=== PATIENT | female | born 1945 ===

== ENCOUNTER 2019-01-10 14:21 | Outpatient (CLI) | payer MEDICARE | END 2019-01-10 14:22 | disposition home or self-care (01) | LOC: C.MAMMO 14:21 | DX: Z12.31 Encounter for screening mammogram for malignant neoplasm of breast (principal) ==

== ENCOUNTER 2019-01-10 15:11 | Outpatient (CLI) | payer MEDICARE | END 2019-01-10 15:12 | disposition home or self-care (01) | LOC: C.RADIC 15:11 ==